=== PATIENT | male | born 1995 | race Caucasian/White ===

== ENCOUNTER 2020-11-12 19:00 | Emergency (ER) | payer MEDICAID, OTHER ==
[2020-11-12 19:04] VITALS: BP 144/92
[2020-11-12] MEDS ORDERED: TETanus/Pertussis (Acell)/Diphther VAC/PF (Tdap-Adult) 0.5ml syringe IMVAC ONE (20:05)
[2020-11-12] MEDS ORDERED: LIDOcaine 1% W/epiNEPHrine 1:200,000 10ml vial IJ ONE (20:05)
== END 2020-11-12 20:30 | disposition home or self-care (01) ==
LOC: ER 19:01
DX: S61.217A Laceration without foreign body of left little finger without damage to nail, initial encounter (principal); Z88.6 Allergy status to analgesic agent; Z88.5 Allergy status to narcotic agent; W45.8XXA Other foreign body or object entering through skin, initial encounter; Y93.89 Activity, other specified; Y92.89 Other specified places as the place of occurrence of the external cause; Y99.8 Other external cause status; Z88.2 Allergy status to sulfonamides
CPT/HCPCS: 90471; 90715; 96374; 99283; 99284